=== PATIENT | female | born 1980 | race African-American/Black ===

== ENCOUNTER 2019-09-08 08:20 | Emergency (ER) | payer MEDICAID ==
[~2019-09-08] VITALS: Ht 160 cm; Wt 113.3 kg
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
[2019-09-08] MEDS ORDERED: FAMOTIDINE 20 MG TABLET ONE (09:10)
[2019-09-08] MEDS ORDERED: MAALOX/HYOSCYAMINE/LIDOCAINE 45 ML BTL ONE (09:10)
--- NOTE | 2019-09-08 09:12 | NUR ---
PT MEDICATED PER ORDERS.
--- NOTE | 2019-09-08 09:22 | NUR ---
LAB AT BEDSIDE FOR LAB DRAW.
[2019-09-08] MEDS ORDERED: MAALOX/HYOSCYAMINE/LIDOCAINE 45 ML BTL PO ONE (09:30)
[2019-09-08] MEDS ORDERED: FAMOTIDINE 20 MG TABLET PO ONE (09:30)
[2019-09-08] MEDS ORDERED: SODIUM CHLORIDE FLUSH 10ML SYR IVF ONE (09:30)
[2019-09-08] MEDS ORDERED: ONDANSETRON 2MG/ML, 2ML IVPush ONE (09:30)
[2019-09-08] MEDS ORDERED: SODIUM CHLORIDE 0.9% 1,000ML IVBOLUS ONE (09:30)
[2019-09-08] MEDS ORDERED: MORPHINE SULFATE 4 MG/ML, 1ML IVPush PRN (09:30)
[2019-09-08 09:33] LABS: BASOPHILS # (AUTO) 0.03 x10^3/uL (0-0.1); BASOPHILS % (AUTO) 0 % (0-1); EOSINOPHILS # (AUTO) 0.06 x10^3/uL (0-0.4); EOSINOPHILS % (AUTO) 1 % (1-7); LYMPHOCYTES # (AUTO) 1.43 x10^3/uL (1-3.4); LYMPHOCYTES % (AUTO) 12 % (22-44); MD NO; MEAN CORPUSCULAR HEMOGLOBIN 26.4 pg (27.0-34.8); MEAN CORPUSCULAR HGB CONC 32.3 g/dL (32.4-35.8); MEAN CORPUSCULAR VOLUME 81.5 fL (80-100); MEAN PLATELET VOLUME 7.6 fL (7.4-10.4); MONOCYTES # (AUTO) 0.31 x10^3/uL (0.2-0.8); MONOCYTES % (AUTO) 3 % (2-9); NEUTROPHILS # (AUTO) 10.04 x10^3/uL (1.8-6.8); NEUTROPHILS % (AUTO) 85 % (42-75); PLATELET COUNT 344 x10^3/uL (130-400); RED BLOOD COUNT 4.97 x10^6/uL (3.82-5.3); RED CELL DISTRIBUTION WIDTH 17.5 % (9.6-15.2)
[2019-09-08 09:42] LABS: CHLORIDE 106 mmol/L (98-107)
--- NOTE | 2019-09-08 09:55 | NUR ---
PIV ESTABLISHED BY THIS RN.
[2019-09-08] MEDS ORDERED: ONDANSETRON 2MG/ML, 2ML ONE (10:00)
[2019-09-08] MEDS ORDERED: MORPHINE SULFATE 4 MG/ML, 1ML ONE (10:00)
--- NOTE | 2019-09-08 10:01 | NUR ---
REPORT GIVEN TO LUISA SALEH. CARE TRANSFERRED.
[2019-09-08 10:04] LABS: ALANINE AMINOTRANSFERASE 22 U/L (12-78); ALBUMIN 3.6 g/dL (3.4-5.0); ALKALINE PHOSPHATASE 77 U/L (45-117); ANION GAP 10 mmol/L (5-15); BILIRUBIN,TOTAL 0.9 mg/dL (0.2-1.0); CALCIUM 8.5 mg/dL (8.5-10.1); CREATININE 0.72 mg/dL (0.55-1.02); TOTAL PROTEIN 7.9 g/dL (6.4-8.2)
--- NOTE | 2019-09-08 10:10 | NUR ---
REPORT FROM LUISA BLAKE. PT SITTING UP IN BED, RESPIRATIONS EVEN AND UNLABORED ON RA. PT MEDICATED PER EMAR, IVF INFUSING AT THIS TIME. BLANKETS APPLIED. SIDE RAILS UP, CALL LIGHT IN REACH.
--- NOTE | 2019-09-08 11:00 | NUR ---
PT TAKEN TO US. NAD NOTED.
--- NOTE | 2019-09-08 11:48 | NUR ---
PT RETURNED FROM US. TEARFUL. "OVERWHELMED" WITH BEING NEW TO AREA, RELAPSE WITH ALCOHOL AND . PT GIVEN LOCAL RESOURCES. AWAITING IMAGING RESULTS.
[2019-09-08] MEDS ORDERED: OXYcodone/APAP 5/325MG TABLET PO ONE (12:30)
[2019-09-08] MEDS ORDERED: OXYcodone/APAP 5/325MG TABLET ONE (12:34)
[2019-09-08 12:53] VITALS: BP 142/79
== END 2019-09-08 12:58 | disposition home or self-care (01) ==
LOC: ED 12:40
DX: O99.611 Diseases of the digestive system complicating pregnancy, first trimester (principal); K29.20 Alcoholic gastritis without bleeding; Z3A.13 13 weeks gestation of pregnancy
CPT/HCPCS: 36415; 76801; 80053; 83690; 84703; 85025; 96361; 96374; 96375; 99284; J2270; J2405; J7030

== ENCOUNTER 2019-10-01 09:15 | Emergency (ER) | payer MEDICAID ==
[~2019-10-01] VITALS: Ht 160 cm; Wt 113.0 kg
--- NOTE | 2019-10-01 09:50 | NUR ---
HYDROGENATION STILL OPERATOR: PT TO ROOM FROM LOBBY, AMBULATORY
--- NOTE | 2019-10-01 10:10 | NUR ---
late entry d/t patient care: labor and rn labor and delivery at bedside, FHT assessment completed. per L&D RN Nubia, FHT auscultated at rate 153.
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
[2019-10-01] MEDS ORDERED: ACETAMINOPHEN 325 MG TABLET PO ONE (10:30)
[2019-10-01] MEDS ORDERED: ONDANSETRON ODT 8 MG PO ONE (10:30)
[2019-10-01] MEDS ORDERED: ACETAMINOPHEN 500 MG TABLET ONE (10:34)
[2019-10-01] MEDS ORDERED: ONDANSETRON ODT 8 MG ONE (10:34)
[2019-10-01 10:46] LABS: BASOPHILS # (AUTO) 0.07 x10^3/uL (0-0.1); BASOPHILS % (AUTO) 1 % (0-1); EOSINOPHILS # (AUTO) 0.06 x10^3/uL (0-0.4); EOSINOPHILS % (AUTO) 1 % (1-7); LYMPHOCYTES # (AUTO) 1.02 x10^3/uL (1-3.4); LYMPHOCYTES % (AUTO) 15 % (22-44); MD NO; MEAN CORPUSCULAR HEMOGLOBIN 26.1 pg (27.0-34.8); MEAN CORPUSCULAR HGB CONC 32.9 g/dL (32.4-35.8); MEAN CORPUSCULAR VOLUME 79.4 fL (80-100); MEAN PLATELET VOLUME 7.8 fL (7.4-10.4); MONOCYTES # (AUTO) 0.29 x10^3/uL (0.2-0.8); MONOCYTES % (AUTO) 4 % (2-9); NEUTROPHILS # (AUTO) 5.33 x10^3/uL (1.8-6.8); NEUTROPHILS % (AUTO) 79 % (42-75); PLATELET COUNT 324 x10^3/uL (130-400); RED BLOOD COUNT 4.51 x10^6/uL (3.82-5.3); RED CELL DISTRIBUTION WIDTH 16.5 % (9.6-15.2)
[2019-10-01 10:54] LABS: ALANINE AMINOTRANSFERASE 23 U/L (12-78); ANION GAP 10 mmol/L (5-15); CALCIUM 8.1 mg/dL (8.5-10.1); CHLORIDE 106 mmol/L (98-107)
[2019-10-01 10:55] LABS: SALICYLATE LEVEL < 1.7 mg/dL (2.8-20.0)
[2019-10-01 10:58] LABS: ALKALINE PHOSPHATASE 70 U/L (45-117); BILIRUBIN,TOTAL 0.9 mg/dL (0.2-1.0); CREATININE 0.56 mg/dL (0.55-1.02); TOTAL PROTEIN 6.8 g/dL (6.4-8.2)
--- NOTE | 2019-10-01 11:00 | NUR ---
late entry d/t patient care: pt medicated per emar, tolerated well. pt is nsr on hall monitor with no ectopy. pt given ice chips and broth with MD russ, tolerating well.
[2019-10-01 11:34] LABS: MICROSCOPIC INDICATED
--- NOTE | 2019-10-01 11:35 | NUR ---
late entry d/t patient care: report given to radha Harkins .
[2019-10-01 11:45] LABS: AMPHETAMINE SCREEN, URINE Negative (Negative); BARBITURATE SCREEN, URINE Negative (Negative); BENZODIAZEPINE SCREEN, URINE Negative (Negative); CANNABINOID SCREEN, URINE Negative (Negative); COCAINE SCREEN, URINE Negative (Negative); METHADONE SCREEN, URINE Negative (Negative); OPIATE SCREEN, URINE Negative (Negative)
[2019-10-01 11:53] VITALS: BP 140/92
--- NOTE | 2019-10-01 11:53 | NUR ---
TASK RN: PT RESTING ON GURNEY. NADN. JACINTO.
--- NOTE | 2019-10-01 12:34 | NUR ---
PER ERP DR. ZAPIEN, SIVA, ROSY, AND RANDY, PRIMARY RN HUSSAIN TO [place] PT.
--- NOTE | 2019-10-01 12:45 | NUR ---
pt was seen by ROSY Richards prior to dc. This RN made CPS report (CPS account manager sales representative was Chinmay Webster) for patient to be flagged when she delivers. Per ROSY Richards, note has been made for L&D staff to notify CPS if pt presents to L&D to deliver.
== END 2019-10-01 12:35 | disposition home or self-care (01) ==
LOC: ED 12:00
DX: O99.312 Alcohol use complicating pregnancy, second trimester (principal); F10.129 Alcohol abuse with intoxication, unspecified; Z3A.16 16 weeks gestation of pregnancy; Y90.9 Presence of alcohol in blood, level not specified
CPT/HCPCS: 36415; 80053; 80307; 81001; 85025; 87086; 99283; Q0162

== ENCOUNTER 2021-05-31 11:15 | Emergency (ER) | payer MEDICAID ==
[~2021-05-31] VITALS: Ht 160 cm; Wt 116.4 kg
--- NOTE | 2021-05-31 11:48 | NUR ---
NIL X1
--- NOTE | 2021-05-31 12:00 | NUR ---
NIL X2
[2021-05-31] MEDS ORDERED: THIAMINE 100MG TABLET PO ONE (13:00)
[2021-05-31] MEDS ORDERED: ONDANSETRON ODT 4 MG PO ONE (13:00)
[2021-05-31 13:30] LABS: BASOPHILS % (AUTO) 1 % (0-1); EOSINOPHILS % (AUTO) 2 % (1-7); LYMPHOCYTES % (AUTO) 48 % (22-44); MEAN CORPUSCULAR HEMOGLOBIN 28.3 pg (27.0-34.8); MEAN CORPUSCULAR HGB CONC 33.4 g/dL (32.4-35.8); MEAN PLATELET VOLUME 6.8 fL (7.4-10.4); MONOCYTES % (AUTO) 9 % (2-9); NEUTROPHILS % (AUTO) 40 % (42-75); PLATELET COUNT 404 x10^3/uL (130-400); RED BLOOD COUNT 5.12 x10^6/uL (3.82-5.3); RED CELL DISTRIBUTION WIDTH 15.8 % (9.6-15.2)
[2021-05-31 13:37] LABS: ALBUMIN 3.7 g/dL (3.4-5.0); ANION GAP 9 mmol/L (5-15); CALCIUM 8.5 mg/dL (8.5-10.1); CHLORIDE 105 mmol/L (98-107)
[2021-05-31 13:41] LABS: ALANINE AMINOTRANSFERASE 252 U/L (12-78); ALKALINE PHOSPHATASE 103 U/L (45-117); BILIRUBIN,TOTAL 0.5 mg/dL (0.2-1.0); CREATININE 0.65 mg/dL (0.55-1.02); TOTAL PROTEIN 8.3 g/dL (6.4-8.2)
[2021-05-31 14:05] VITALS: BP 154/103
--- NOTE | 2021-05-31 14:16 | NUR ---
pipe testing technician: Patient left the emergency department.
[2021-05-31] MEDS ORDERED: THIAMINE 100MG TABLET ONE (14:20)
[2021-05-31] MEDS ORDERED: ONDANSETRON ODT 4 MG ONE (14:20)
== END 2021-05-31 14:21 | disposition left against medical advice (07) ==
LOC: ED 11:30
DX: F10.10 Alcohol abuse, uncomplicated (principal); R11.10 Vomiting, unspecified; E66.9 Obesity, unspecified; Z68.42 Body mass index [BMI] 45.0-49.9, adult; Y90.0 Blood alcohol level of less than 20 mg/100 ml
CPT/HCPCS: 36415; 80053; 83690; 85025; 86850; 86900; 99283

== ENCOUNTER 2021-05-31 19:30 | Emergency (ER) | payer MEDICAID ==
[~2021-05-31] VITALS: Ht 160 cm; Wt 115.5 kg
[2021-05-31] MEDS ORDERED: SODIUM CHLORIDE 0.9% 1,000ML IVBOLUS ONE (20:30)
[2021-05-31] MEDS ORDERED: FAMOTIDINE 20 MG/2 ML IVPush ONE (20:30)
[2021-05-31] MEDS ORDERED: ONDANSETRON 2MG/ML, 2ML IVPush ONE (20:30)
--- NOTE | 2021-05-31 22:32 | NUR ---
dynamometer tester: patient to room from lobby.
[2021-05-31] MEDS ORDERED: FAMOTIDINE 20 MG/2 ML ONE (22:36)
[2021-05-31] MEDS ORDERED: ONDANSETRON 2MG/ML, 2ML ONE (22:36)
--- NOTE | 2021-05-31 22:40 | NUR ---
PT CAME INTO ED TODAY FOR ABDOMINAL PAIN, PRIMARILY EPIGASTRIC REGION, [id number], REPORTS SOFT STOOL, N/V WITH THIS. STATES ITS A BURNING TYPE OF PAIN. PT PLACED ON SPO2/BP/ECG MONITORING AT THIS TIME. PROVIDED WARM BLANKETS FOR COMFORT, BED IN LOWEST, RAILS ENGAGED, CALL LIGHT ON LAP, MEDICATED PER NOV, LABS SENT, WCTM.
[2021-05-31] MEDS ORDERED: MORPHINE SULFATE 4 MG/ML, 1ML IVPush PRN (23:00)
[2021-05-31 23:11] LABS: MEAN CORPUSCULAR HEMOGLOBIN 27.8 pg (27.0-34.8); MEAN CORPUSCULAR HGB CONC 32.6 g/dL (32.4-35.8); MEAN PLATELET VOLUME 6.8 fL (7.4-10.4); PLATELET COUNT 350 x10^3/uL (130-400); RED CELL DISTRIBUTION WIDTH 16.4 % (9.6-15.2)
[2021-05-31 23:20] LABS: ALBUMIN 3.8 g/dL (3.4-5.0); ANION GAP 12 mmol/L (5-15); CALCIUM 8.4 mg/dL (8.5-10.1); CHLORIDE 105 mmol/L (98-107)
[2021-05-31 23:34] LABS: ALANINE AMINOTRANSFERASE 239 U/L (12-78); ALKALINE PHOSPHATASE 95 U/L (45-117); BILIRUBIN,TOTAL 0.5 mg/dL (0.2-1.0); CREATININE 0.59 mg/dL (0.55-1.02)
[2021-05-31 23:42] LABS: BANDS%(MANUAL) 2 % (0-7); BASOS% (MANUAL) 2 % (0-1); EOS% (MANUAL) 2 % (1-7); LYMPH#(MANUAL) 2.45 x10^3/uL (1-3.4); LYMPHS% (MANUAL) 50 % (22-44); MONOS#(MANUAL) 0.44 x10^3/uL (0.3-2.7); MONOS% (MANUAL) 9 % (2-9); REACTIVE LYMPHS % (MANUAL) 2 % (0-0); SEG#(MANUAL) 1.62 x10^3/uL (1.8-6.8); SEGS% (MANUAL) 33 % (42-75)
[2021-05-31 23:43] LABS: <PLATELET ESTIMATE> ADEQUATE; <RBC MORPHOLOGY> NORMAL; SMALL PLATELETS 1+
[2021-06-01 00:17] VITALS: BP 162/96
--- NOTE | 2021-06-01 00:18 | NUR ---
Patient given discharge instructions and they have confirmed that they understand the instructions. Patient ambulatory with steady gait. NAD, all questions answered appropriately, denies additional needs at this time. No personal belongings left in room after discharge.
== END 2021-06-01 00:31 | disposition home or self-care (01) ==
LOC: ED 23:59
DX: K29.20 Alcoholic gastritis without bleeding (principal); R00.0 Tachycardia, unspecified
CPT/HCPCS: 36415; 76700; 80053; 80320; 83690; 84703; 85025; 96374; 96375; 99284; J2405; J7030; G0480